=== PATIENT | female | born 1975 | race Caucasian/White ===

== ENCOUNTER → 2018-08-28 | Outpatient (CLI) | payer OTHER ==
--- NOTE | 2018-08-28 15:53 | EKG ---
[place] [address] ELECTROCARDIOGRAM REPORT Name: STEPHANIE SANCHEZ Room: [facility]#: [id number] Admission: 08/28/18 Attend Phys: ARMANI Griffith Discharge: Date of : 75 Report #: [id number] THIS REPORT FOR: //name// [facility] Test Date: 2018-08-28 Test Time: 15:20:42 Pat Name: STEPHANIE FRAGATINGS Department: Room: Gender: F Faculty Instructor: : 1975 Requested By: Aisha Rivera Order Number: [id number] Richa MD: Jefferson Flower Measurements Intervals [place] Rate: 82 P: 49 NM: 179 QRS: 41 QRSD: 96 T: 181 QT: 399 QTc: 466 Interpretive Statements Sinus rhythm Probable left atrial enlargement LVH with secondary repolarization abnormality Anterior ST elevation, probably due to LVH No previous ECG available for comparison Electronically Signed On 08-28-2018 15:53:00 [employer] by Jefferson Flower [email or web address] <ELECTRONICALLY SIGNED> By: Jefferson Flower MD, [facility] 08/28/18 1553 1520 1520 Jefferson Flower MD, FACC /EPI
[2018-08-28 16:04] LABS: ABSOLUTE BASOPHILS 0.1 thou/uL (0.0-0.2); ABSOLUTE EOSINOPHILS 0.4 thou/uL (0.0-0.7); ABSOLUTE LYMPHOCYTES 2.2 thou/uL (0.8-5.3); ABSOLUTE MONOCYTES 0.8 thou/uL (0.0-1.2); ABSOLUTE NEUTROPHILS 8.1 thou/uL (1.6-8.1); BASOPHILS 1.2 %; EOSINOPHILS 3.5 %; HEMATOCRIT 33.1 % (37.0-47.0); HEMOGLOBIN 10.4 gm/dL (12.0-15.0); LYMPHOCYTES 19.1 %; MCH 22.6 pg (26.0-34.0); MCHC 31.4 g/dL (28.0-37.0); MONOCYTES 6.8 %; MPV 8.9 fl. (7.2-11.1); NUCLEATED RBCS 0 /100WBC; PLATELET COUNT* 344 thou/uL (150-400); POLYS 69.4 %; RBC 4.59 mil/uL (4.20-5.00); RDW-CV 17.6 % (10.5-14.5); WBC 11.7 thou/uL (4.0-11.0)
[2018-08-28 16:24] LABS: PLATELET ESTIMATE ADEQUATE
[2018-08-28 16:25] LABS: ANISOCYTOSIS 1+; HYPOCHROMASIA 2+; MICROCYTES 1+; POIKILOCYTOSIS 1+
[2018-08-28 16:27] LABS: ALBUMIN 3.4 g/dL (3.4-5.0); ALKALINE PHOSPHATASE 61 U/L (46-116); ANION GAP 11 mmol/L (7-16); BUN 16 mg/dL (7-18); CHLORIDE 103 mmol/L (98-107); CHOLESTEROL 201 mg/dL (<200); CO2 26 mmol/L (21-32); CREATININE 0.7 mg/dL (0.6-1.3); GLUCOSE 136 mg/dL (70-99); HDL CHOLESTEROL 34 mg/dL (>40); LDL CHOLESTEROL 89 mg/dL (<100); NT-PRO BRAIN NAT PEPTIDE 111 pg/mL (<300); POTASSIUM 3.5 mmol/L (3.5-5.1); SGOT 10 U/L (15-37); SGPT 26 U/L (30-65); SODIUM 140 mmol/L (136-145); TC:HDL 5.9 Ratio (Not establshd); TOTAL BILIRUBIN 0.2 mg/dL (<0.1-1.0); TOTAL PROTEIN 7.3 g/dL (6.4-8.2); TRIGLYCERIDE 393 mg/dL (<150); VLDL 79 mg/dL (<40)
[2018-08-28 16:29] LABS: SERUM ASSESSMENT Slight Lipemia
[2018-08-29 02:11] LABS: GLYCOHEMOGLOBIN (HGB A1C) 5.7 % (4.8-5.6)
== END ==
LOC: M.LAB 15:04
PROVIDERS: Nurse Practitioner Family
DX: Z00.01 Encounter for general adult medical examination with abnormal findings (principal); I11.9 Hypertensive heart disease without heart failure; I42.2 Other hypertrophic cardiomyopathy; D50.8 Other iron deficiency anemias; E28.2 Polycystic ovarian syndrome; E78.2 Mixed hyperlipidemia; R73.09 Other abnormal glucose

== ENCOUNTER → 2018-09-14 | Outpatient (CLI) | payer OTHER ==
--- NOTE | 2018-09-14 17:16 | 2DMMODE ---
[place] [address] 2 D/M-MODE ECHOCARDIOGRAM Name: LAURA,STEPHANIE N Room: [facility]#: [id number] Admission: 09/14/18 Attend Phys: HOLGER Fierro Discharge: Date of : 75 Date of Service: 09/14/18 1716 Report #: [id number] THIS REPORT FOR: //name// APPROVED REPORT Study performed: 09/14/2018 15:00:46 EXAM: Comprehensive 2D, Doppler, and color-flow Echocardiogram Patient Location: Out-Patient Status: routine BSA: 2.20 HR: 64 bpm BP: 176/98 mmHg Other Information Study Quality: Fair Indications Dyspnea 2D Dimensions IVSd: 14.47 (7-11mm) LVOT Diam: 20.84 (18-24mm) LVDd: 45.11 mm PWd: 12.41 (7-11mm) Ascending Ao: 32.50 (22-36mm) LVDs: 25.61 (25-40mm) Aortic Root: 30.41 mm Volumes Left Atrial Volume (Systole) LA ESV Index: 20.70 mL/m2 Aortic Valve AoV Peak Abrahan.: 3.79 m/s AO Peak Gr.: 57.42 mmHg LVOT Max P.01 mmHg AO Mean Gr.: 30.98 mmHg LVOT Mean P.70 mmHg LVOT Max V: 1.58 m/s AO V2 VTI: 79.53 cm LVOT Mean V: 0.99 m/s LISA (VTI): 1.47 cm2 LVOT V1 VTI: 34.24 cm Mitral Valve E/A Ratio: 1.33 MV Decel. Time: 254.85 ms MV E Max Abrahan.: 1.09 m/s MV PHT: 73.91 ms MVA (PHT): 2.98 [place]2 [place] [address] 2 D/M-MODE ECHOCARDIOGRAM Name: IVAN SANCHEZHER Gilman Room: [facility]#: [id number] Admission: 09/14/18 Attend Phys: HOLGER Fierro Discharge: Date of : 75 Date of Service: 09/14/18 1716 Report #: [id number] TDI E/Lateral E': 18.17 E/Medial E': 21.80 Medial E' Abrahan.: 0.05 m/s Lateral E' Abrahan.: 0.06 m/s Pulmonary Valve PV Peak Abrahan.: 1.25 m/s PV Peak Gr.: 6.22 mmHg Left Ventricle The left ventricle is normal size. There is normal LV segmental wall motion. Mild concentric left ventricular hypertrophy. Left ventricular outflow tract gradient is present with peak systolic gradient of 58 mm Hg Left ventricular systolic function is normal. The left ventricular ejection fraction is within the normal range. LVEF is 65-70%. The left ventricular diastolic function is normal. Right Ventricle The right ventricle is normal size. The right ventricular systolic function is normal. Atria The left atrium size is normal. The right atrium size is normal. Aortic Valve The aortic valve is normal in structure. No aortic regurgitation is present. There is no aortic valvular stenosis. Mitral Valve The mitral valve is normal in structure. Mild mitral regurgitation. No evidence of mitral valve stenosis. Tricuspid Valve The tricuspid valve is normal in structure. There is no tricuspid valve regurgitation noted. Pulmonic Valve The pulmonary valve is normal in structure. There is no pulmonic [place] [address] 2 D/M-MODE ECHOCARDIOGRAM Name: STEPHANIE SANCHEZ Room: [facility]#: [id number] Admission: 09/14/18 Attend Phys: HOLGER Fierro Discharge: Date of : 75 Date of Service: 09/14/18 1716 Report #: [id number] [place] Vessels The aortic root is normal in size. IVC is normal in size and collapses >50% with inspiration. Pericardium There is no pericardial effusion. <Conclusion> Mild concentric left ventricular hypertrophy. Left ventricular outflow tract gradient is present with peak systolic gradient of 58 mm Hg LVEF is 65-70%. <ELECTRONICALLY SIGNED> By: Sky Platt MD, FACC 09/14/181715 15 15 Sky Platt MD, FACC /INF
== END ==
LOC: M.CRD 13:20
DX: I51.7 Cardiomegaly (principal); R06.02 Shortness of breath; I42.2 Other hypertrophic cardiomyopathy

== ENCOUNTER → 2019-04-22 | Outpatient (CLI) | payer OTHER ==
[2019-04-22 08:09] LABS: ABSOLUTE BASOPHILS 0.1 thou/uL (0.0-0.2); ABSOLUTE EOSINOPHILS 0.3 thou/uL (0.0-0.7); ABSOLUTE MONOCYTES 0.8 thou/uL (0.0-1.2); ABSOLUTE NEUTROPHILS 6.7 thou/uL (1.6-8.1); BASOPHILS 0.7 %; EOSINOPHILS 3.5 %; HEMATOCRIT 41.8 % (37.0-47.0); HEMOGLOBIN 13.6 gm/dL (12.0-15.0); LYMPHOCYTES 19.7 %; MCH 26.1 pg (26.0-34.0); MCHC 32.4 g/dL (28.0-37.0); MCV 80.4 fL (80.0-100.0); MONOCYTES 8.3 %; MPV 8.7 fl. (7.2-11.1); NUCLEATED RBCS 0 /100WBC; PLATELET COUNT* 370 thou/uL (150-400); POLYS 67.8 %; RBC 5.21 mil/uL (4.20-5.00); RDW-CV 14.6 % (10.5-14.5); WBC 9.9 thou/uL (4.0-11.0)
[2019-04-22 08:19] LABS: ALBUMIN 3.6 g/dL (3.4-5.0); ALKALINE PHOSPHATASE 52 U/L (46-116); ANION GAP 10 mmol/L (7-16); BUN 16 mg/dL (7-18); CALCIUM 9.3 mg/dL (8.5-10.1); CHLORIDE 102 mmol/L (98-107); CHOLESTEROL 191 mg/dL (<200); CO2 27 mmol/L (21-32); CREATININE 0.7 mg/dL (0.6-1.3); GLUCOSE 105 mg/dL (70-99); HDL CHOLESTEROL 36 mg/dL (>40); LDL CHOLESTEROL 131 mg/dL (<100); POTASSIUM 4.3 mmol/L (3.5-5.1); SGOT 13 U/L (15-37); SGPT 29 U/L (30-65); SODIUM 139 mmol/L (136-145); TC:HDL 5.3 Ratio (Not establshd); TOTAL BILIRUBIN 0.4 mg/dL (<0.1-1.0); TOTAL PROTEIN 7.5 g/dL (6.4-8.2); TRIGLYCERIDE 123 mg/dL (<150); VLDL 25 mg/dL (<40)
[2019-04-22 08:20] LABS: SERUM ASSESSMENT Clear
[2019-04-23 02:07] LABS: GLYCOHEMOGLOBIN (HGB A1C) 5.8 % (4.8-5.6)
== END ==
LOC: M.LAB 07:41
PROVIDERS: Nurse Practitioner Family
DX: Z00.01 Encounter for general adult medical examination with abnormal findings (principal); E55.9 Vitamin D deficiency, unspecified; D50.8 Other iron deficiency anemias; E78.2 Mixed hyperlipidemia; R73.09 Other abnormal glucose; I42.2 Other hypertrophic cardiomyopathy; I10 Essential (primary) hypertension

== ENCOUNTER → 2020-05-01 | Outpatient (CLI) | payer OTHER ==
--- NOTE | 2020-05-01 17:25 | 2DMMODE ---
[place] [address] 2 D/M-MODE ECHOCARDIOGRAM Name: STEPHANIE SANCHEZ Kalina Room: [facility]#: [id number] Admission: 05/01/20 Attend Phys: Nerissa Melgar Discharge: Date of : 75 Date of Service: 05/01/20 1724 Report #: [id number] THIS REPORT FOR: cc: Aisha Rivera Tami FNP Liston, Michael J. MD [facility] ~ APPROVED REPORT Study performed: 05/01/2020 13:04:30 EXAM: Comprehensive 2D, Doppler, and color-flow Echocardiogram Patient Location: Out-Patient BSA: 2.24 HR: 69 bpm BP: 152/88 mmHg Other Information Study Quality: Fair Indications Cardiomyopathy 2D Dimensions IVSd: 10.12 (7-11mm) LVOT Diam: 22.45 (18-24mm) LVDd: 53.70 mm PWd: 10.35 (7-11mm) Ascending Ao: 30.74 (22-36mm) LVDs: 30.12 (25-40mm) Aortic Root: 28.85 mm Volumes Left Atrial Volume (Systole) LA ESV Index: 28.00 mL/m2 Aortic Valve AoV Peak Abrahan.: 3.56 m/s AO Peak Gr.: 50.83 mmHg LVOT Max P.42 mmHg AO Mean Gr.: 28.47 mmHg LVOT Mean P.77 mmHg LVOT Max V: 1.16 m/s LVOT Mean V: 0.77 m/s LVOT V1 VTI: 21.91 cm Mitral Valve E/A Ratio: 1.00 [place] [address] 2 D/M-MODE ECHOCARDIOGRAM Name: LAURASTEPHANIE Kalina Room: [facility]#: [id number] Admission: 05/01/20 Attend Phys: Nerissa Melgar Discharge: Date of : 75 Date of Service: 05/01/20 1724 Report #: [id number] MV Decel. Time: 362.59 ms MV E Max Abrahan.: 0.88 m/s MV PHT: 105.15 ms MVA (PHT): 2.09 cm2 TDI E/Lateral E': 17.60 E/Medial E': 14.67 Medial E' Abrahan.: 0.06 m/s Lateral E' Abrahan.: 0.05 m/s Pulmonary Valve PV Peak Abrahan.: 1.30 m/s PV Peak Gr.: 6.78 mmHg Left Ventricle The left ventricle is normal size. There is normal LV segmental wall motion. Moderate basal septal hypertrophy is present. Echo findings are consistent with hypertrophic cardiomyopathy. Left ventricular systolic function is normal. LVEF is >70%. Transmitral Doppler flow pattern suggests impaired LV relaxation. Right Ventricle The right ventricle is normal size. The right ventricular systolic function is normal. Atria The left atrium size is normal. The right atrium size is normal. Aortic Valve The aortic valve is normal in structure. No aortic regurgitation is present. There is no aortic valvular stenosis. There is normal aortic valve excursion. Mitral Valve The mitral valve is normal in structure. There is no mitral valve regurgitation noted. No evidence of mitral valve stenosis. Tricuspid Valve The tricuspid valve is normal in structure. There is no tricuspid valve regurgitation noted. Pulmonic Valve The pulmonary valve is normal in structure. There is no pulmonic valvular regurgitation[place] [address] 2 D/M-MODE ECHOCARDIOGRAM Name: STEPHANIE SANCHEZ [id number] Admission: 05/01/20 Attend Phys: Nerissa Melgar Discharge: Date of : 75 Date of Service: 05/01/20 1724 Report #: [id number] The aortic root is normal in size. IVC is normal in size and collapses >50% with inspiration. Pericardium There is no pericardial effusion. <Conclusion> The left ventricle is normal size. Moderate basal septal hypertrophy is present. Echo findings are consistent with hypertrophic cardiomyopathy. Left ventricular systolic function is normal. LVEF is >70%. Transmitral Doppler flow pattern suggests impaired LV relaxation. There is no aortic valvular stenosis. There is normal aortic valve excursion. IVC is normal in size and collapses >50% with inspiration. <ELECTRONICALLY SIGNED> By: Jc Alatorre MD, FACC 05/01/20 172 23 23 Jc Alatorre MD, FACC /INF
== END ==
LOC: M.CRD 13:00
PROVIDERS: ATTEND Internal Medicine
DX: I42.2 Other hypertrophic cardiomyopathy (principal); I10 Essential (primary) hypertension

== ENCOUNTER → 2020-05-29 | Outpatient (CLI) | payer OTHER ==
[2020-05-29 12:28] LABS: ABSOLUTE BASOPHILS 0.1 thou/uL (0.0-0.2); ABSOLUTE EOSINOPHILS 0.3 thou/uL (0.0-0.7); ABSOLUTE LYMPHOCYTES 1.8 thou/uL (0.8-5.3); ABSOLUTE MONOCYTES 0.7 thou/uL (0.0-1.2); ABSOLUTE NEUTROPHILS 9.3 thou/uL (1.6-8.1); EOSINOPHILS 2.4 %; HEMATOCRIT 41.6 % (37.0-47.0); HEMOGLOBIN 13.6 gm/dL (12.0-15.0); MCH 26.7 pg (26.0-34.0); MCHC 32.7 g/dL (28.0-37.0); MCV 81.5 fL (80.0-100.0); MONOCYTES 6.1 %; MPV 8.8 fl. (7.2-11.1); NUCLEATED RBCS 0 /100WBC; PLATELET COUNT* 348 thou/uL (150-400); POLYS 75.5 %; RDW-CV 15.1 % (10.5-14.5); WBC 12.3 thou/uL (4.0-11.0)
[2020-05-29 12:41] LABS: ALBUMIN 3.8 g/dL (3.4-5.0); ALKALINE PHOSPHATASE 59 U/L (46-116); ANION GAP 9 mmol/L (7-16); BUN 14 mg/dL (7-18); CALCIUM 9.2 mg/dL (8.5-10.1); CHLORIDE 104 mmol/L (98-107); CHOLESTEROL 190 mg/dL (<200); CO2 29 mmol/L (21-32); CREATININE 0.8 mg/dL (0.6-1.3); GLUCOSE 92 mg/dL (70-99); HDL CHOLESTEROL 40 mg/dL (>40); LDL CHOLESTEROL 135 mg/dL (<100); POTASSIUM 4.3 mmol/L (3.5-5.1); SERUM ASSESSMENT Clear; SGOT 14 U/L (15-37); SGPT 38 U/L (30-65); SODIUM 142 mmol/L (136-145); TC:HDL 4.8 Ratio (Not establshd); TOTAL BILIRUBIN 0.6 mg/dL (<0.1-1.0); TRIGLYCERIDE 78 mg/dL (<150); VLDL 16 mg/dL (<40)
[2020-05-30 02:06] LABS: GLYCOHEMOGLOBIN (HGB A1C) 5.8 % (4.8-5.6)
== END ==
LOC: M.LAB 12:08
PROVIDERS: ATTEND Nurse Practitioner Family
DX: Z00.01 Encounter for general adult medical examination with abnormal findings (principal); I10 Essential (primary) hypertension; R73.09 Other abnormal glucose; E78.2 Mixed hyperlipidemia; E55.9 Vitamin D deficiency, unspecified; D50.8 Other iron deficiency anemias

== ENCOUNTER → 2020-10-20 | Outpatient (CLI) | payer OTHER ==
--- NOTE | 2020-10-27 13:28 | SLEEP ---
[address] [address] SLEEP STUDY REPORT Name: STEPHANIE SANCHEZ Kalina Room: [facility]#: [id number] Admission: 10/20/20 Attend Phys: HOLGER Carrington Discharge: Date of : 75 Report #: [id number] THIS REPORT FOR: cc: Aisha Rivera Tami FNP ~ Rodríguez Jeronimo MD This study has been reviewed in its entirety by a board certified sleep specialist DATE OF SERVICE: 10/20/2020 SLEEP STUDY INDICATION FOR SLEEP STUDY: Obstructive sleep apnea, snoring and restless leg syndrome. INTERPRETATION: Total duration of the study is 387 minutes. During this time duration, the patient was asleep for 265 minutes with an overall sleep efficiency of 68%. Sleep onset was rapid, getting around 5 minutes of lying down in bed. N1 sleep was elevated to 19%, N2 duration was 54%, N3 duration was 5% and REM duration was 22%. This is a split night sleep study. During the initial part of the sleep study, the patient was not on positive airway pressure therapy for 131 minutes. During this diagnostic portion of the sleep study, the patient was observed to be asleep for 87 minutes. The entire duration was in non-REM sleep. At this point, we recorded multiple sleep related respiratory events. These included 31 obstructive apneas in addition to 120 hypopneas and 4 respiratory effort related arousals. The patient's apnea-hypopnea index was markedly elevated at 104.8. Body position data indicates that the entire duration of sleep time during the diagnostic portion of the sleep study as well. The patient is lying on her sides. Mean heart rate at this point was 75. Limb movement index was only mildly elevated to 11.7. There was a marked sleep fragmentation observed with an arousal index markedly elevated to 83. There were also multiple desaturations recorded. Overall, the patient spent 18 minutes below an O2 saturation of 90%, out of which 7 minutes were spent with an O2 saturation less than 88%. The patient was subsequently placed on a CPAP and was observed on CPAP for 256 minutes, the patient out of this was asleep for 176 minutes, this included 59 minutes in REM sleep. Mean heart rate was now 89, limb movement index normalized to 7.8. Arousal index improved to 59, [place] [address] SLEEP STUDY REPORT Name: STEPHANIE SANCHEZ Room: [facility]#: [id number] Admission: 10/20/20 Attend Phys: HOLGER Carrington Discharge: Date of : 75 Report #: [id number] Review of the CPAP titration indicates the patient was titrated beginning with a CPAP pressure of 5 cm of water, gradually increasing it to 12 cm of water. The patient had a favorable response to CPAP therapy. With the administration of a CPAP of 12 cm of water, marked improvement in the patient's sleep-disordered respirations was noted with only occasional hypopneas and now recorded with an apnea-hypopnea index improving to 1.3. An O2 saturation maintained at or above 91%. REM supine sleep was observed on the final CPAP pressure. IMPRESSION: 1. Obstructive sleep apnea with an apnea-hypopnea index of 104.8 with nocturnal hypoxemia as described above. The patient is noted to be lying only on her sides during the diagnostic portion of the sleep study. 2. With the administration of a CPAP of 12 cm of water, there is marked improvement in the patient's obstructive sleep apnea noted with only rare hypopneas now occurring and O2 saturation adequately maintained. REM supine sleep was observed on the final CPAP pressure. RECOMMENDATIONS: Recommend a CPAP with 12 cm of water with heated humidity and mask per patient preference while asleep. During this sleep study an AirFit N20 nasal mask, size medium was used with a C-Flex of 3. If clinically appropriate, then consider recommending weight loss as well. Recommend avoiding driving or other activities requiring vigilance if drowsy. At this time, entire sleep study was reviewed by board certified sleep physician. <ELECTRONICALLY SIGNED> By: Rodríguez Jeronimo MD 10/27/20 1328 1436 1510Rodríguez Jeronimo MD /nt
== END ==
LOC: M.SLEEPLAB 08-15 20:00
PROVIDERS: ATTEND Registered Nurse
DX: G47.33 Obstructive sleep apnea (adult) (pediatric) (principal); G47.34 Idiopathic sleep related nonobstructive alveolar hypoventilation